=== PATIENT | male | born 1985 | race Caucasian/White ===

== ENCOUNTER 2017-08-25 09:04 | Emergency (ER) | payer BC ==
[2017-08-25 09:09] VITALS: BP 127/86; PULSE 77; RESP 18; TEMP 98
[2017-08-25] MEDS ORDERED: IBUPROFEN 600 MG TAB PO STA (09:26)
[2017-08-25] MEDS ORDERED: CYCLOBENZAPRINE 10 MG TAB PO STA (09:26)
--- NOTE | 2017-08-25 09:30 | ED ---
Back Pain HPI - General Chief Complaint: Back Pain/Injury Stated Complaint: back injury Time Seen by Provider: 08/25/17 09:10 Source: patient, RN notes reviewed Limitations: no limitations - History of Present Illness Initial Comments: 32-year-old male presents with chief complaint of low back pain. Patient states he does do lifting yesterday states that his hand slipped causing him to jerk. Patient has pain in the right side of his back. Denies any bowel bladder incontinence or retention. Denies any saddle anesthesias. Denies any lower extremity paresthesias. Patient states that he has injured his back in the past. He took one ibuprofen yesterday which may have more bearable states she does not have any more. Patient has no abdominal pain denies any dysuria no hematuria. - Related Data Home Medications Medication Instructions Recorded Confirmed Albuterol Inhaler [Ventolin Hfa 1 - 2 puff INHALATION RT-Q6H PRN 08/25/17 Inhaler] Calcium Carbonate [Tums] 500 mg PO QID PRN 08/25/17 08/25/17 Previous Rx's Medication Instructions Recorded Cyclobenzaprine [Flexeril] 10 mg PO TID PRN #15 tab 08/25/17 Ibuprofen [Motrin] 600 mg PO Q8HR PRN #30 tab 08/25/17 Allergies Allergy/AdvReac Type Severity Reaction Status Date / Time No Known Allergies Allergy Verified 08/25/17 09:17 Review of Systems ROS Statement: Those systems with pertinent positive or pertinent negative responses have been documented in the HPI. ROS Other: All systems not noted in ROS Statement are negative. Past Medical History Past Medical History: Asthma History of Any Multi-Drug Resistant Organisms: None Reported Past Surgical History: Appendectomy Past Psychological History: Anxiety, Depression Smoking Status: Never smoker Past Alcohol Use History: Occasional Past Drug Use History: None Reported General Exam Limitations: no limitations General appearance: alert, in no apparent distress Head exam: Present: atraumatic, normocephalic, normal inspection Eye exam: Present: normal appearance, PERRL, EOMI. Absent: scleral icterus, conjunctival injection, periorbital swelling Respiratory exam: Present: normal lung sounds bilaterally. Absent: respiratory distress, wheezes, rales, rhonchi, stridor Cardiovascular Exam: Present: regular rate, normal rhythm, normal heart sounds. Absent: systolic murmur, diastolic murmur, rubs, gallop, clicks GI/Abdominal exam: Present: soft, normal bowel sounds. Absent: distended, tenderness, guarding, rebound, rigid Extremities exam: Present: normal inspection, full ROM, normal capillary refill , other (Lower extremity neurovascular intact equal color equal warmth equal pedal pulses). Absent: tenderness, pedal edema, joint swelling, calf tenderness Back exam: Present: full ROM (Mild discomfort), tenderness (Mild right low), paraspinal tenderness, other (Pain with left straight leg raise). Absent: vertebral tenderness Neurological exam: Present: alert, oriented X3, CN II-XII intact, reflexes normal. Absent: motor sensory deficit Skin exam: Present: warm, dry, intact, normal color. Absent: rash Course Vital Signs 08/25/17 09:06 Temperature 98 F Pulse Rate 77 Respiratory 18 Rate Blood Pressure 127/86 O2 Sat by Pulse 99 Oximetry Medical Decision Making - Medical Decision Making 32-year-old male presents from for low back pain. Patient is a lumbar strain. He has no red flag symptoms. Patient we treated conservatively apply heat and ice 20 minutes at time Motrin and Flexeril as directed. Patient will do daily stretching Disposition Clinical Impression: Strain of lumbar region Disposition: HOME SELF-CARE Condition: Stable Instructions: Acute Low Back Pain (ED) Additional Instructions: Please return to the Emergency Department if symptoms worsen or any other concerns. Prescriptions: Cyclobenzaprine [Flexeril] 10 mg PO TID PRN #15 tab PRN Reason: Muscle Spasm Ibuprofen [Motrin] 600 mg PO Q8HR PRN #30 tab PRN Reason: Pain Is patient prescribed a controlled substance at d/c from ED?: No Referrals: None,Stated [Primary Care Provider] - 1-2 days Time of Disposition: 09:30
== END 2017-08-25 09:41 | disposition home or self-care (01) ==
LOC: EC 09:04
DX: S39.012A Strain of muscle, fascia and tendon of lower back, initial encounter (principal); J45.909 Unspecified asthma, uncomplicated; X50.9XXA Other and unspecified overexertion or strenuous movements or postures, initial encounter
CPT/HCPCS: 99283

== ENCOUNTER → 2022-10-27 | Outpatient (CLI) | payer BC ==
--- NOTE | 2022-11-07 23:24 | MR ---
EXAMINATION TYPE: MR wrist RT wo con DATE OF EXAM: 10/27/2022 COMPARISON: NONE HISTORY: 37-year-old male M25.531 Right wrist pain, swelling, redness, and limited movement for 3-4 y ears, history of riding bikes often. TECHNIQUE: Multiplanar, multisequence images of the right wrist were obtained without IV contrast. FINDINGS: The radiocarpal and distal radioulnar joint as well as the midcarpal compartment appear intact. No si gnificant joint effusion. No acute or healing fracture or abnormal bone marrow edema seen. The scapholunate ligament and lunotriquetral ligaments appear intact. The volar flexor tendons appear satisfactory. There is a bifid median nerve which shows normal signal intensity. Dorsal extensor tendons show mild tenosynovial fluid along the second compartment tendons, probably p hysiologic. The triangular fibrocartilage is intact. There may be very minimal early degenerative spurring at the first CMC joint. IMPRESSION: Incidental bifid median nerve. Mild tenosynovial fluid along the second compartment dorsal extensor t endons which may be physiologic or could represent a mild tenosynovitis. Possible very early degenera tive spurring at the first CMC joint. Otherwise, no specific abnormality seen.
== END | disposition home or self-care (01) ==
LOC: RADMRIMAIN 21:15
PROVIDERS: ATTEND Orthopaedic Surgery
DX: M25.531 Pain in right wrist (principal); M67.833 Other specified disorders of tendon, right wrist

== ENCOUNTER → 2022-12-20 | Outpatient (CLI) | payer BC | END | disposition home or self-care (01) | LOC: LABWHC1 07:34 | PROVIDERS: ATTEND Psychiatry & Neurology Psychiatry | DX: Z79.899 Other long term (current) drug therapy (principal) | CPT/HCPCS: 36415; 80178 ==